=== PATIENT | female | born 1965 | race Caucasian/White ===

== ENCOUNTER 2018-11-18 11:34 | Day surgery (SDC) | payer MEDICAID ==
[~2018-11-18] VITALS: Ht 144.8 cm; Wt 58.0 kg
[2018-11-18] VITALS (11 sets, daily range): BP systolic 100–121; BP diastolic 60–89; PULSE 70–75; RESP 16–20; Ht 144.8 cm; Wt 58.0 kg
[~2018-11-18 11:34] MED LIST: ALBU8.5H8 INH; ASC500 PO; BECL10.62 IH; CALC1TAB79 PO; CYCLOPENTOLATE 1% 2 ML OPH LEFT EYE SCH; ERGO2000 PO; FER325 PO; HYDR-843 PO; INSU100I33 SC; INSU200I SQ; LACTATED RINGER'S 1,000 ML IV SCH; LEVO75TA84 PO; LIDOCAINE 1% (MPF) 5 ML VIAL INJ ONE; MAGN500C PO; MOXIFLOXACIN 0.5% 3 ML OPH LEFT EYE SCH; MULTI PO; OMEP20CA16 PO; OXYC5CAP17 PO; PHENYLephrine 2.5% 15 ML OPH LEFT EYE SCH; RIFA550T4 PO; SUCR1TAB56 PO; TETRACAINE 0.5% 4 ML OPH RIGHT EYE ONE; TOBRAMYCIN/DEXAMETH 3.5 GM OPH OINT RIGHT EYE ONE; TROPICAMIDE 1% 15 ML OPH LEFT EYE SCH; URSO250T10 PO; [UNRECOGNIZED DRUG - CODE]
[2018-11-18] MEDS ORDERED: TETRACAINE 0.5% 4 ML OPH RIGHT EYE ONE (13:05)
[2018-11-18] MEDS ORDERED: LIDOCAINE 1% (MPF) 5 ML VIAL INJ ONE (13:05)
[2018-11-18] MEDS ORDERED: TOBRAMYCIN/DEXAMETH 3.5 GM OPH OINT RIGHT EYE ONE (13:05)
[2018-11-18] MEDS ORDERED: MIDAZOLAM 1 MG/ML 2 ML INJ ONE (13:31)
[2018-11-18] MEDS ORDERED: FENTAnyl 50 MCG/ML VIAL ONE (13:36)
[2018-11-18] MEDS ORDERED: LABETALOL HCL 20MG INJ IV PRN (14:30)
[2018-11-18] MEDS ORDERED: hydrALAzine 20 MG INJ IV PRN (14:30)
[2018-11-18] MEDS ORDERED: EPHEDrine 25 MG/5 ML SYG IV PRN (14:30)
[2018-11-18] MEDS ORDERED: ONDANSETRON 4 MG INJ IV PRN (14:30)
[2018-11-18] MEDS ORDERED: DIPHENHYDRAMINE 50 MG INJ IV PRN (14:30)
[2018-11-18] MEDS ORDERED: FENTAnyl 50 MCG/ML VIAL IV PRN (14:30)
== END 2018-11-18 15:47 | disposition home or self-care (01) ==
LOC: SDS 11:34
PROVIDERS: ATTEND Ophthalmology
DX: H25.042 Posterior subcapsular polar age-related cataract, left eye (principal); E03.9 Hypothyroidism, unspecified; J45.909 Unspecified asthma, uncomplicated
CPT/HCPCS: 66984; 84703; J2250; J3010; V2632; Z7512; Z7610